=== PATIENT | male | born 1985 | race African-American/Black ===

== ENCOUNTER 2019-03-22 22:28 | Emergency (ER) | payer MEDICAID ==
[~2019-03-22] VITALS: Ht 182.9 cm; Wt 86.6 kg
[2019-03-22 22:36] VITALS: BP 130/87
--- NOTE | 2019-03-22 22:48 | NUR ---
PT TAKEN TO BED 3
[2019-03-22] MEDS ORDERED: predniSONE 20 MG TAB PO ONE (22:55)
--- NOTE | 2019-03-22 23:08 | NUR ---
33 YO M BIB SELF PRESENTS TO ED C/O 02/08 DULL WEN ACCOMPANIED BY RIGHT-SIDE FACIAL NUMBNESS AND FACIAL DROOP X 1 DAY. SPEECH IS CLEAR. EYES PERRLA. PT UNABLE TO CLOSE RIGHT EYE. ROM STRONG AND EQUAL IN ALL 4 EXTREMETIES. -- PT IS ALERT, CALM, COOPERATIVE, ANSWERING QUESTIONS APPROPRIATELY. -- SKIN PINK, DRY, WARM. BREATHING EVEN, UNLABORED. -- VSS. PMH-- HIV POSITIVE. MEDICATION COMPLIANT.
--- NOTE | 2019-03-22 23:25 | NUR ---
PT TAKEN TO CT
--- NOTE | 2019-03-22 23:29 | NUR ---
PT TAKEN TO CT VIA WC.
[2019-03-23 00:20] VITALS: BP 137/89
--- NOTE | 2019-03-23 00:20 | NUR ---
Patient discharged with v/s stable. Written and verbal after care instructions given and explained. Patient alert, oriented and verbalized understanding of instructions. Ambulatory with steady gait. All questions addressed prior to discharge. ID band removed. Patient advised to follow up with PMD. Rx of ARTIFICIAL TEARS, PREDNISONE 50MG AND ACYCLOVIR 800MG given. Patient educated on indication of medication including possible reaction and side effects. Opportunity to ask questions provided and answered.
== END 2019-03-23 00:20 | disposition home or self-care (01) ==
LOC: MED 22:28
DX: G51.0 Bell's palsy (principal)
CPT/HCPCS: 70450; 99284; J7512